=== PATIENT | female | born 1950 | race Caucasian/White ===

== ENCOUNTER 2025-07-07 02:09 | Inpatient (IN) | payer MEDICARE, OTHER ==
[~2025-07-07] VITALS: Ht 165.1 cm; Wt 82.2 kg
[2025-07-07] VITALS (51 sets, daily range): BP systolic 70–119; BP diastolic 46–92; TEMP 97.5–98; O2SAT 89–98
[2025-07-07] MEDS ORDERED: DILTIAZEM HCL 50 MG IV ONE (02:42)
[2025-07-07] MEDS ORDERED: HYDROCODONE/APAP 5/325MG TABLET ONE (02:42)
[2025-07-07 02:49] LABS: PLATELET COUNT (AUTO) 202 K/uL (150-450); RED BLOOD CELL COUNT(AUTO) 3.99 MIL/uL (4.0-5.2); RED CELL DISTRIBUTION WIDTH 17.1 % (11.5-15.0); WHITE BLOOD COUNT (AUTO) 8.3 K/uL (4.3-11.0)
[2025-07-07] MEDS: HYDROCODONE/APAP 5/325MG TABLET PO ONE (02:51)
[2025-07-07] MEDS: DILTIAZEM HCL 50 MG IV IV ONE (02:51)
[2025-07-07 02:56] LABS: CALCIUM, SERUM 8.9 mg/dL (8.5-10.1); CREATININE 1.0 mg/dL (0.6-1.3); SODIUM SERUM 138 mmol/L (136-145); UREA NITROGEN, BLOOD 19 mg/dL (7-18)
[2025-07-07 03:03] LABS: INR 1.08 (0.91-1.10)
[2025-07-07 03:09] LABS: ASPARTATE AMINOTRANSFERASE 13 U/L (15-37); NT-PRO BNP 579 pg/mL (0-125); TOTAL PROTEIN, SERUM 6.8 g/dL (6.4-8.2)
[2025-07-07] MEDS ORDERED: CT SWABBABLE VALVE TRANS SET 1 EA INFUS.SET MC ONE (03:09)
[2025-07-07] MEDS ORDERED: IOHEXOL-350 100 ML VIAL IV ONE (03:09)
[2025-07-07] MEDS ORDERED: IV NS 0.9% 250 ML IV ONE (03:10)
[2025-07-07] MEDS ORDERED: DILTIAZEM HCL 25 MG IV ONE (03:29)
[2025-07-07] MEDS: DILTIAZEM HCL IV 125 MG in IV NS 0.9% 100 ML IV PRN ×2 (03:39→05:07)
[2025-07-07] MEDS ORDERED: Z GUARD REMEDY 4 OZ OINT TP PRN (04:00)
[2025-07-07] MEDS ORDERED: TEMAZEPAM 15 MG CAPSULE PO PRN (04:00)
[2025-07-07] MEDS ORDERED: MAG HYDROX/AL HYDROX/SIMETH 30 ML UDC PO PRN (04:00)
[2025-07-07] MEDS ORDERED: ACETAMINOPHEN 325 MG TABLET PO PRN (04:00)
[2025-07-07] MEDS ORDERED: IPRATROPIUM NEB FS 0.5 MG/2.5 ML AMPUL.NEB NEB PRN (04:00)
[2025-07-07] MEDS ORDERED: ONDANSETRON HCL/PF 4 MG/2 ML VIAL IVP PRN (04:00)
[2025-07-07] MEDS ORDERED: ALBUTEROL FS 2.5 MG/3 ML VIAL.NEB NEB PRN (04:00)
[2025-07-07] MEDS ORDERED: MAGNESIUM HYDROXIDE 30 ML UDC PO PRN (04:00)
[2025-07-07] MEDS ORDERED: AMLO-212 PO (04:48)
[2025-07-07] MEDS: CEFTRIAXONE 1 G in IV D5W 50 ML IV ONE (05:00)
[2025-07-07] MEDS: ENOXAPARIN SODIUM 40 MG/0.4 ML DISP.SYRIN SQ ONE (05:53)
[2025-07-07] MEDS ORDERED: PHENYLEPHRINE 50 MG in IV NS 0.9% 245 ML IV PRN (06:30)
[2025-07-07] MEDS: CEFTRIAXONE 1 G in IV D5W 50 ML IV SCH (08:04)
[2025-07-07] MEDS: AMIODARONE 150 MG in IV D5W 100 ML IV ONE (08:04)
[2025-07-07] MEDS: AMIODARONE 450 MG in IV D5W 241 ML IV PRN (08:29)
[2025-07-07] MEDS: PANTOPRAZOLE 40 MG VIAL IV SCH (08:34)
[2025-07-07] MEDS: ENOXAPARIN SODIUM 40 MG/0.4 ML DISP.SYRIN SQ SCH (20:17)
[2025-07-07] MEDS: HYDROCODONE/APAP 5/325MG TABLET PO PRN (20:20)
[2025-07-07] MEDS ORDERED: CEFTRIAXONE 1 G in IV D5W 50 ML IV SCH (21:00)
[2025-07-07] MEDS: ATORVASTATIN 40 MG TABLET PO SCH (21:35)
[2025-07-08] VITALS (17 sets, daily range): BP systolic 90–128; BP diastolic 43–77; TEMP 97.5–98.7; O2SAT 92–97
[2025-07-08 04:05] LABS: PLATELET COUNT (AUTO) 193 K/uL (150-450); RED BLOOD CELL COUNT(AUTO) 3.83 MIL/uL (4.0-5.2); RED CELL DISTRIBUTION WIDTH 16.9 % (11.5-15.0); WHITE BLOOD COUNT (AUTO) 6.7 K/uL (4.3-11.0)
[2025-07-08 04:21] LABS: CALCIUM, SERUM 8.7 mg/dL (8.5-10.1); CREATININE 0.8 mg/dL (0.6-1.3); PHOSPHORUS 3.3 mg/dL (2.5-4.9); SODIUM SERUM 136 mmol/L (136-145); UREA NITROGEN, BLOOD 9 mg/dL (7-18)
[2025-07-08 04:33] LABS: LDL 62 mg/dL (0-99)
[2025-07-08] MEDS: PANTOPRAZOLE 40 MG TABLET.DR PO SCH (08:48)
[2025-07-08] MEDS: DRONEDARONE HYDROCHLORIDE 400 MG TABLET PO SCH (09:50)
[2025-07-09] VITALS (10 sets, daily range): BP systolic 101–129; BP diastolic 66–75; TEMP 97.2–98.3; O2SAT 82–100
[2025-07-09 07:07] LABS: PLATELET COUNT (AUTO) 193 K/uL (150-450); RED BLOOD CELL COUNT(AUTO) 3.98 MIL/uL (4.0-5.2); RED CELL DISTRIBUTION WIDTH 16.7 % (11.5-15.0); WHITE BLOOD COUNT (AUTO) 6.8 K/uL (4.3-11.0)
[2025-07-09 07:44] LABS: CALCIUM, SERUM 9.1 mg/dL (8.5-10.1); CREATININE 0.9 mg/dL (0.6-1.3); PHOSPHORUS 3.4 mg/dL (2.5-4.9); SODIUM SERUM 138.0 mmol/L (136-145); UREA NITROGEN, BLOOD 8.0 mg/dL (7-18)
[2025-07-10] VITALS: BP_SYST 123; BP_SYST 133; BP_DIAS 61; TEMP 97.7; O2SAT 95
[2025-07-10 04:00] VITALS: BP 120/65; TEMP 97.9; O2SAT 96
[2025-07-10 06:56] LABS: PLATELET COUNT (AUTO) 194 K/uL (150-450); RED BLOOD CELL COUNT(AUTO) 4.04 MIL/uL (4.0-5.2); RED CELL DISTRIBUTION WIDTH 16.5 % (11.5-15.0); WHITE BLOOD COUNT (AUTO) 6.0 K/uL (4.3-11.0)
[2025-07-10 07:27] LABS: CALCIUM, SERUM 8.9 mg/dL (8.5-10.1); CREATININE 0.8 mg/dL (0.6-1.3); PHOSPHORUS 3.5 mg/dL (2.5-4.9); SODIUM SERUM 138.0 mmol/L (136-145); UREA NITROGEN, BLOOD 8.0 mg/dL (7-18)
[2025-07-10 08:00] VITALS: BP 107/70; TEMP 98.6; O2SAT 97
[2025-07-10] MEDS ORDERED: DRON400T6 PO (11:00)
[2025-07-10 12:00] VITALS: BP 110/75; TEMP 98.4; O2SAT 97
[2025-07-10 16:00] VITALS: BP 107/64; TEMP 99; O2SAT 96
[2025-07-10 16:50] LABS: PROTEIN, BODY FLUID 4.8 G/DL
[2025-07-10 17:00] LABS: WBC, BODY FLUID 1021 /cu. mm. (0-200)
[2025-07-10 17:33] LABS: TOTAL VOLUME,BODY FLUID 1050 mL
[2025-07-10 17:40] LABS: APPEARANCE,SPUN,BODY FLUID CLEAR (CLEAR)
[2025-07-10 19:06] LABS: MACROPHAGES, BODY FLUID 5
== END 2025-07-10 18:34 | disposition home or self-care (01) | DRG 308 ==
LOC: ER 02:35 → ICU 04:30 → TELE 07-08 12:05 → MED 07-10 05:16
PROVIDERS: ADMIT Student in an Organized Health Care Education/Training Program; ATTEND Internal Medicine
PROC: 0W9B3ZZ Drainage of Left Pleural Cavity, Percutaneous Approach (ICD-10-PCS; principal; 2025-07-10)
DX: I48.91 Unspecified atrial fibrillation (principal); J96.01 Acute respiratory failure with hypoxia; J90 Pleural effusion, not elsewhere classified; E44.0 Moderate protein-calorie malnutrition; J98.11 Atelectasis; C78.02 Secondary malignant neoplasm of left lung; C78.01 Secondary malignant neoplasm of right lung; C53.9 Malignant neoplasm of cervix uteri, unspecified; Z79.82 Long term (current) use of aspirin; E66.9 Obesity, unspecified; I10 Essential (primary) hypertension; Z79.60 Long term (current) use of unspecified immunomodulators and immunosuppressants; Z68.30 Body mass index [BMI] 30.0-30.9, adult; Z92.3 Personal history of irradiation; D64.9 Anemia, unspecified
CPT/HCPCS: 36415; 70450-TC; 71045-TC; 80048-TC; 80061-TC; 80076-TC; 83735-TC; 83880; 84100-TC; 84443-TC; 84484-TC; 85025-TC; 85730-TC; 87070-TC; 87075-TC; 87081-TC; 87102-TC; 89051-TC; 93307-TC; A4223; G0378; J0282; J0696; J1650; J2470; J3490; J7050; J7060; Q9967